=== PATIENT | female | born 1960 | race Caucasian/White ===

== ENCOUNTER → 2021-12-06 11:02 | Outpatient (CLI) | payer OTHER, SELFPAY ==
--- NOTE | ~2021-12-06 | MM_ITS ---
EXAMINATION: MM screening laura BI w murali HISTORY: Screening TECHNIQUE: Craniocaudal and mediolateral oblique 3-D tomosynthesis images were obtained and synthetic 2-D images were generated. CAD analysis was submitted and interpreted. COMPARISON: Comparison to multiple prior studies sequentially, with oldest reviewed study dated 04/16. BREAST PARENCHYMAL COMPOSITION: The breasts are heterogeneously dense, which may obscure small masses . FINDINGS: There is no evidence of suspicious mass, calcification, or architectural distortion to sugg est malignancy in either breast. There has been no suspicious interval change. IMPRESSION: 1. No mammographic evidence of malignancy. 2. Recommend routine screening mammography in one year. BI-RADS Category 1: Negative Reviewed, dictated and finalized at location A.
== END ==
PROVIDERS: PCP Family Medicine; Visit Provider Family Medicine
DX: Z12.31 Encounter for screening mammogram for malignant neoplasm of breast (principal)
CPT/HCPCS: 77063; 77067

== ENCOUNTER 2022-07-26 14:23 | Outpatient (CLI) | payer OTHER, SELFPAY ==
--- NOTE | 2022-07-26 15:00 | ECG_ITS ---
Measurements Intervals [place] Rate: 71 P: -5 AL: 147 QRS: 17 QRSD: 92 T: 3 QT: 393 QTc: 429 Interpretive Statements SINUS RHYTHM WITH FREQUENT VENTRICULAR PREMATURE COMPLEXES POSSIBLE RIGHT VENTRICULAR CONDUCTION DELAY [RSR (QR) IN V1/V2] ABNORMAL RHYTHM ECG NO PREVIOUS ECG AVAILABLE FOR COMPARISON Electronically Signed On 07-26-2022 16:30:07 CDT by Héctor Hernandez M.D.
[2022-07-26 15:25] LABS: Alanine Aminotransferase 25 U/L (6-35); Albumin Level 4.8 g/dL (3.5-5.1); Alkaline Phosphatase 64 U/L (38-126); Anion Gap 6 mmol/L (8-16); Aspartate Amino Transferase 35 U/L (14-36); Bilirubin,Total 0.6 mg/dL (0.2-1.3); Blood Urea Nitrogen 16 mg/dL (7-17); Calcium 9.4 mg/dL (8.4-10.2); Carbon Dioxide 32 mmol/L (22-30); Chloride 100 mmol/L (98-107); Estimated Glomerular Filt Rate > 60; Glucose 103 mg/dL (65-110); Potassium 4.5 mmol/L (3.4-5.0); Sodium 138 mmol/L (137-145)
[2022-07-26 15:26] LABS: Hematocrit 43.1 % (37.0-47.0); Hemoglobin 14.3 g/dL (12.0-15.0); Mean Corpuscular HGB Conc 33.2 g/dl (32-36); Mean Corpuscular Hemoglobin 33.7 pg (26-34); Mean Corpuscular Volume 101.7 fl (80-100); Mean Platelet Volume 9.4 fl (7.4-10.4); Platelet Count Result 277 k/mm3 (150-375); Red Blood Count 4.24 M/mm3 (4.2-5.4); Red Cell Distribution Width 11.8 % (11.5-14.5)
[2022-07-26 16:00] LABS: Thyroid Stimulating Hormone 0.883 uIU/mL (0.465-4.680)
[2022-07-26 16:41] LABS: Free T4 Free Thyroxine 0.81 ng/mL (0.78-2.19)
== END 2022-07-26 14:24 | disposition home or self-care (01) ==
LOC: ANHLAB 14:24
PROVIDERS: PCP Family Medicine; Visit Provider Physician Assistant
DX: R53.83 Other fatigue (principal); D64.9 Anemia, unspecified; Z13.1 Encounter for screening for diabetes mellitus
CPT/HCPCS: 36415; 80053; 84439; 84443; 85027; 93005

== ENCOUNTER 2022-09-13 07:24 | Outpatient (CLI) | payer OTHER, SELFPAY ==
--- NOTE | 2022-09-13 07:46 | EST_ITS ---
Patient Info Name: Fidelina Barfield Age: 61 years : 1960 Gender: Female Ht: 66 in Wt: 10 lbs BSA: 0.42 m2 HR: 57 bpm BP: 159 / 88 mmHg Heart Rhythm: Sinus Rhythm Exam Date: 09/13/2022 8:54 AM Exam Location: [facility] Stress Patient Status: Outpatient Admit Date: 09/13/2022 Staff Ordering Physician: Landry Trujillo DO Attending Provider: Landry Trujillo DO Exercise Technologist: Briana Trevino CT Exercise Physician: Landry Trujillo DO Exam Type: CA stress test treadmill Study Info Indications R07.89 - Other chest pain A treadmill exercise stress test was performed. Summary 1. 1. Negative Darío exercise stress test for ischemic ST changes by ECG criteria. 2. 2. Good functional capacity, achieving 11 METs of workload. 3. 3. Baseline hypertension. 4. 4. Appropriate HR response to exercise. 5. 5. Appropriate HR recovery at 1 minute post exercise. 6. 6. No imaging with stress testing. 7. 7. Patient informed of the above results. Protocol: Darío Stress ECG Details Stage: REST Duration (min): 2 min : 13 sec Speed (mph): 0.0 Grade (%): 0 HR (bpm): 58 SBP (mmHg): 159 DBP (mmHg): 88 METS: --- Stage: REST Duration (min): 12 min : 11 sec Speed (mph): 0.0 Grade (%): 0 HR (bpm): 62 SBP (mmHg): 159 DBP (mmHg): 88 METS: --- Stage: STAGE 1 Duration (min): 1 min : 0 sec Speed (mph): 1.7 Grade (%): 10 HR (bpm): 87 SBP (mmHg): 159 DBP (mmHg): 88 METS: --- Stage: STAGE 1 Duration (min): 2 min : 0 sec Speed (mph): 1.7 Grade (%): 10 HR (bpm): 103 SBP (mmHg): 159 DBP (mmHg): 88 METS: --- Stage: STAGE 1 Duration (min): 3 min : 0 sec Speed (mph): 1.7 Grade (%): 10 HR (bpm): 98 SBP (mmHg): 191 DBP (mmHg): 69 METS: --- Stage: STAGE 2 Duration (min): 1 min : 0 sec Speed (mph): 2.5 Grade (%): 12 HR (bpm): 103 SBP (mmHg): 191 DBP (mmHg): 69 METS: --- Stage: STAGE 2 Duration (min): 2 min : 0 sec Speed (mph): 2.5 Grade (%): 12 HR (bpm): 103 SBP (mmHg): 202 DBP (mmHg): 75 METS: --- Stage: STAGE 2 Duration (min): 3 min : 0 sec Speed (mph): 2.5 Grade (%): 12 HR (bpm): 106 SBP (mmHg): 202 DBP (mmHg): 75 METS: --- Stage: STAGE 3 Duration (min): 1 min : 0 sec Speed (mph): 3.4 Grade (%): 14 HR (bpm): 114 SBP (mmHg): 202 DBP (mmHg): 75 METS: --- Stage: STAGE 3 Duration (min): 2 min : 0 sec Speed (mph): 3.4 Grade (%): 14 HR (bpm): 117 SBP (mmHg): 197 DBP (mmHg): 84 METS: --- Stage: STAGE 3 Duration (min): 3 min : 0 sec Speed (mph): 3.4 Grade (%): 14 HR (bpm): 117 SBP (mmHg): 164 DBP (mmHg): 91 METS: --- Stage: STAGE 4 Duration (min): 0 min : 55 sec Speed (mph): 4.2 Grade (%): 16 HR (bpm): 132 SBP (mmHg): 164 DBP (mmHg): 91 METS: --- Stage: RECOVERY Duration (min): 0 min : 4 sec Speed (mph): 1.5 Grade (%): 0 HR (bpm): 133 SBP (mmHg): 164
--- NOTE | 2022-09-13 07:46 | ECHO_ITS ---
Patient Info Name: Fidelina Barfield Age: 61 years : 1960 Gender: Female Ht: 66 in Wt: 130 lbs BSA: 1.66 m2 HR: 61 bpm BP: 152 / 77 mmHg Technical Quality: Good Exam Date: 09/13/2022 8:02 AM Exam Location: [facility] Patient Status: Outpatient Admit Date: 09/13/2022 Staff Ordering Physician: Landry Trujillo DO Associate Professor Of Economics: Cindy Garnica RDCS Attending Provider: Landry Trujillo DO Referring Physician: Ronnie GONCALVES; Exam Type: CA echo doppler color flow Study Info Indications R07.9 - Chest pain, unspecified Complete two-dimensional, color flow and Doppler transthoracic echocardiogram is performed. Summary 1. Complete two-dimensional, color flow and Doppler transthoracic echocardiogram is performed. 2. Left ventricular chamber dimension is normal. 3. Left ventricular systolic function is normal, estimated at 55-60%. 4. The left ventricular diastolic function is grade I diastolic dysfunction. 5. E/e' 8 is minimally elevated. 6. Global longitudinal strain is abnormal at -14.0%. 7. Left atrial chamber dimension is moderately enlarged. 8. There is trace mitral valve regurgitation. 9. No pulmonary hypertension, estimated pulmonary arterial systolic pressure is 26 mmHg. Left Ventricle E/e' 8 is minimally elevated. Global longitudinal strain is abnormal at -14.0%. Left ventricular chamber dimension is normal. Left ventricular systolic function is normal, estimated at 55-60%. The left ventricular diastolic function is grade I diastolic dysfunction. Right Ventricle Right ventricular systolic function is normal and with normal TAPSE 2.5 cm. Right ventricular chamber dimension is normal. Left Atria Left atrial chamber dimension is moderately enlarged. Right Atria Right atrial chamber dimension is normal. Aortic Valve The aortic valve is trileaflet. There is no aortic valve stenosis. There is no aortic valve regurgitation. Pulmonic Valve There is no pulmonic regurgitation. Mitral Valve There is no mitral valve stenosis. There is trace mitral valve regurgitation. Tricuspid Valve There is no tricuspid valve regurgitation. No pulmonary hypertension, estimated pulmonary arterial systolic pressure is 26 mmHg. Pericardium/Pleural There is no pericardial effusion. Inferior Vena Cava Normal inferior vena cava with >50% collapse upon inspiration consistent with normal right atrial pressure, 5 mmHg. Aorta The aortic root size at the sinus of Valsalva is normal. Left Ventricular Outflow Tract Name Value Normal LVOT 2D LVOT Diameter 1.9 cm LVOT Doppler LVOT Peak Gradient 6 mmHg LVOT Mean Gradient 3 mmHg LVOT VTI 29 cm LVOT VTI/AV VTI Ratio 0.9 LVOT Stroke Volume 83 ml LVOT CO 4.3 l/min LVOT CI 2.6 l/min/m2 Pulmonic Valve Name Value Normal RVOT Doppler
== END 2022-09-13 07:25 | disposition home or self-care (01) ==
PROVIDERS: PCP Family Medicine; Visit Provider Internal Medicine Cardiovascular Disease
DX: R07.9 Chest pain, unspecified (principal)
CPT/HCPCS: 93017; 93306